=== PATIENT | male | born 1995 | race Caucasian/White ===

== ENCOUNTER 2016-11-10 22:33 | Inpatient (IN) | payer BC ==
[2016-11-10] MEDS ORDERED: Ketorolac INJ* 30 MG/ML 1 ML VIAL IV PUSH ONE (23:42)
[2016-11-10] MEDS ORDERED: Morphine INJ* 4 MG/ML 1 ML CARPUJECT IV ONE (23:43)
[2016-11-11] MEDS: NS 0.9% 1000 ML* 2,000 ML IV ONE ×2 (00:11→02:01)
[2016-11-11 00:13] LABS: Hematocrit 48 % (42-52); Hemoglobin 16.4 g/dl (14.0-18.0); Mean Corpuscular HGB Conc 34 g/dl (31-36); Mean Corpuscular Hemoglobin 30 pg (27-31); Mean Corpuscular Volume 87 fL (80-94); Mean Platelet Volume 9 um3 (7.4-10.4); Red Blood Count 5.53 10^6/ul (4.0-5.4); Red Cell Distribution Width 14 % (10.5-15); White Blood Count 23.8 10^3/ul (3.5-10.8)
[2016-11-11 00:14] LABS: Add Diff/Slide Review? Slide Review Added; Comments Flag Yes
[2016-11-11 00:15] LABS: ALT 14 U/L (7-52); AST 15 U/L (13-39); Albumin 4.7 g/dL (3.2-5.2); Alkaline Phosphatase 81 U/L (34-104); Anion Gap 11 mmol/L (2-11); BUN/Creatinine Ratio 21.1 (8-20); Blood Urea Nitrogen 16 mg/dL (6-24); CO2 Carbon Dioxide 28 mmol/L (22-32); Chloride 95 mmol/L (101-111); EGFR African American 166.5 (>60); EGFR Non-African American 129.5 (>60); Globulin 3.1 g/dL (2-4); Glucose 144 mg/dL (70-100); Lipase < 10 U/L (11.0-82.0); Potassium 3.6 mmol/L (3.5-5.0); Sodium 134 mmol/L (133-145); Total Protein 7.8 g/dL (6.4-8.9)
[2016-11-11] MEDS ORDERED: Ondansetron ODT TAB* 4 MG PO ONE (00:28)
--- NOTE | 2016-11-11 00:39 | ED ---
Abdominal Pain/Male - HPI Summary HPI Summary: 21M presents with RLQ pain for 2 days. He admits to nausea and vomiting. He states the pain started off intermittent and has gotten progressively worst. He states the pain radiates to right testicle. He denies any fevers. He has not eaten anything since Thursday. He denies any previous abdominal surgeries. He denies any dysuria. He denies any hemturia, penile discharge, frequency, urgency. He has never had this pain before. He states pain is 10/10. - History of Current Complaint Chief Complaint: EDAbdPain Stated Complaint: ABD PAIN Time Seen by Provider: 11/10/16 23:32 Pain Intensity: 7 - Allergies/Home Medications Allergies/Adverse Reactions: Allergies Allergy/AdvReac Type Severity Reaction Status Date / Time No Known Allergies Allergy Verified 11/10/16 22:58 PMH/Surg Hx/FS Hx/Imm Hx Endocrine/Hematology History: Denies: Hx Anticoagulant Therapy, Hx Diabetes Cardiovascular History: Denies: Hx Hypertension Infectious Disease History: No Infectious Disease History: Denies: Traveled Outside the [place] in Last 30 Days - Family History Known Family History: Negative: Diabetes - Social History Alcohol Use: Weekly Substance Use Type: Reports: Marijuana Smoking Status (MU): Never Smoked Tobacco Review of Systems Negative: Fever Negative: Chest Pain Negative: Shortness Of Breath Positive: Abdominal Pain, Vomiting, Nausea All Other Systems Reviewed And Are Negative: Yes Physical Exam Triage Information Reviewed: Yes Vital Signs On Initial Exam: Initial Vitals Temp Pulse Resp BP Pulse Ox 98.4 F 105 18 126/75 97 11/10/16 22:53 11/10/16 22:53 11/10/16 22:53 11/10/16 22:53 11/10/16 22:53 Vital Signs Reviewed: Yes Appearance: Positive: Pain Distress Skin: Positive: Warm, Dry Head/Face: Positive: Normal Head/Face Inspection Eyes: Positive: Normal, EOMI, OPAL, Conjunctiva Clear ENT: Positive: Normal ENT inspection, Pharynx normal, TMs normal Respiratory/Lung Sounds: Positive: Clear to Auscultation, Breath Sounds Present Cardiovascular: Positive: Normal, RRR Abdomen Description: Positive: Soft, Other: - tender in RLQ. pos obturator. no rebound Bowel Sounds: Positive: Present Psychiatric: Positive: Normal Diagnostics - Vital Signs Vital Signs Temp Pulse Resp BP Pulse Ox 10/03/17 00:10 20 11/10/16 23:34 79 97 11/10/16 22:53 98.4 F 105 18 126/75 97 - Laboratory Lab Results: Lab Results 11/10/16 11/10/16 Range/Units 23:40 23:40 WBC 23.8 H (3.5-10.8) 10^3/ul RBC 5.53 H (4.0-5.4) 10^6/ul Hgb 16.4 (14.0-18.0) g/dl Hct 48 (42-52) % MCV 87 (80-94) fL MCH 30 (27-31) pg MCHC 34 (31-36) g/dl RDW 14 (10.5-15) % Plt Count 268 (150-450) 10^3/ul MPV 9 (7.4-10.4) um3 Neut % (Auto) 94.1 H (38-83) % Lymph % (Auto) 2.5 L (25-47) % Centre % (Auto) 3.3 (1-9) % Eos % (Auto) 0 (0-6) % Baso % (Auto) 0.1 (0-2) % Absolute Neuts (auto) 22.4 H (1.5-7.7) 10^3/ul Absolute Lymphs (auto) 0.6 L (1.0-4.8) 10^3/ul Absolute Monos (auto) 0.8 (0-0.8) 10^3/ul Absolute Eos (auto) 0 (0-0.6) 10^3/ul Absolute Basos (auto) 0 (0-0.2) 10^3/ul Absolute Nucleated RBC 0 10^3/ul Nucleated RBC % 0 Sodium 134 (133-145) mmol/L Potassium 3.6 (3.5-5.0) mmol/L Chloride 95 L (101-111) mmol/L Carbon Dioxide 28 (22-32) mmol/L Anion Gap 11 (2-11) mmol/L BUN 16 (6-24) mg/dL Creatinine 0.76 (0.67-1.17) mg/dL Est GFR ( Amer) 166.5 (>60) Est GFR (Non-Af Amer) 129.5 (>60) BUN/Creatinine Ratio 21.1 H (8-20) Glucose 144 H (70-100) mg/dL Calcium 10.0 (8.6-10.3) mg/dL Total Bilirubin 0.70 (0.2-1.0) mg/dL AST 15 (13-39) U/L ALT 14 (7-52) U/L Alkaline Phosphatase 81 (34-104) U/L C-React Prot High Sens 67.27 mg/L Total Protein 7.8 (6.4-8.9) g/dL Albumin 4.7 (3.2-5.2) g/dL Globulin 3.1 (2-4) g/dL Albumin/Globulin Ratio 1.5 (1-3) Lipase < 10 L (11.0-82.0) U/L Result Diagrams: 11/10/16 23:40 11/10/16 23:40 Lab Statement: Any lab studies that have been ordered have been reviewed, and results considered in the medical decision making process. - CT abd CT Interpretation: Positive (See Comments) - fluid filled appendix 9mm appendicolith at junction with cecum and disconitnuuity in mid appedniceal wall with periappendical soft tissue inflammation. findings concistent with acute appendiciits probably complicated by perforation with with small free lfuid of developing abscess. no free air. CT Interpretation Completed By: Radiologist - Ultrasound No standard instances Ultrasound Interpretation: No Acute Changes Ultrasound Interpretation Completed By: Radiologist Abdominal Pain Fem Course/Dx - Course Course Of Treatment: 21M presents with RLQ pain for 2 days. He admits to nausea and vomiting. He states the pain started off intermittent and has gotten progressively worst. He states the pain radiates to right testicle. He denies any fevers. He has not eaten anything since Thursday. He denies any previous abdominal surgeries. He denies any dysuria. He denies any hemturia, penile discharge, frequency, urgency. He has never had this pain before. He states pain is 10/10. labs wbc 23 with left shift. testicular u/s normal. Ct shows acute appendicitis. dr moncada aware and will have admitted. - Diagnoses Differential Diagnosis/HQI/PQRI: Appendicitis, Testicular Torsion, Urinary Tract Infection Provider Diagnoses: Appendicitis - Provider Notifications Discussed Care Of Patient With: dr coral Time Discussed With Above Provider: 03:25 - will admit Discharge - Discharge Plan Condition: Guarded Disposition: ADMITTED TO [facility] Referrals: Norman Hidalgo MD [Primary Care Provider] -
[2016-11-11] MEDS ORDERED: Ondansetron INJ* 2 MG/ML VIAL IV ONE ×2 (00:45→03:24)
[2016-11-11] MEDS ORDERED: HYDROmorphone INJ* 1 MG/ML CARPUJECT SYRINGE IV SLOW PU ONE ×2 (00:45→03:24)
[2016-11-11] MEDS ORDERED: Iohexol 300* (CONTRAST) 10 ML SDV IV ONE (01:30)
[2016-11-11 02:05] LABS: Urine Bilirubin Negative (Negative); Urine Glucose Negative (Negative); Urine Nitrite Negative (Negative)
[2016-11-11] MEDS ORDERED: HYDROmorphone INJ* 1 MG/ML CARPUJECT SYRINGE IV SLOW PU PRN (03:21)
[2016-11-11] MEDS: NS 0.9% 1000 ML* 1,000 ML IV SCH ×2 (04:26→17:07)
[2016-11-11] MEDS ORDERED: Famotidine IV* 10 MG/ML 2 ML (20 mg) ONE (07:16)
[2016-11-11] MEDS ORDERED: Bupivacaine 0.25% SDV* 30 ML ONE ×2 (07:38→10:37)
[2016-11-11] MEDS ORDERED: ceFAZolin 2 GM PREMIX (*) 50 ML IVPB ONE (07:47)
--- NOTE | 2016-11-11 07:59 | RAD ---
HISTORY: Right testicular pain COMPARISONS: None TECHNIQUE: Multiple transverse and longitudinal ultrasound images were obtained of the scrotum, using grayscale, color Doppler, and spectral Doppler imaging. FINDINGS: RIGHT: RIGHT TESTICLE: The right testicle measures 4.2 x 1.7 x 3.3 cm. The right testicle is homogeneous in echotexture, without testicular parenchymal mass. Normal arterial and venous waveforms are identified within the right testicle on spectral Doppler imaging. RIGHT EPIDIDYMIS: The right epididymis measures 1 cm at the head. RIGHT SCROTUM: There is no hydrocele or varicocele. LEFT: LEFT TESTICLE: The left testicle measures 4.3 x 1.9 x 3 cm. The left testicle is homogeneous in echotexture, without testicular parenchymal mass. Normal arterial and venous waveforms are identified within the left testicle on spectral Doppler imaging. LEFT EPIDIDYMIS: The left epididymis measures 1.2 cm at the head. LEFT SCROTUM: There is no hydrocele or varicocele. OTHER: None IMPRESSION: 1. NO TESTICULAR PARENCHYMAL MASS. 2. NO SONOGRAPHIC FEATURES OF TORSION. PLEASE NOTE THAT PARTIAL OR INTERMITTENT TORSION MAY BE SONOGRAPHICALLY NORMAL.
--- NOTE | 2016-11-11 08:16 | RAD ---
CLINICAL HISTORY: Right lower quadrant pain COMPARISON: None TECHNIQUE: Multiple contiguous axial CT scans were obtained of the abdomen and pelvis after the administration of intravenous contrast. Coronal and sagittal multiplanar reformations are submitted for review. Oral contrast was administered. Delayed images were obtained through the abdomen and pelvis. FINDINGS: LUNG BASES: The lung bases are clear. LIVER: The liver is normal in shape, size, contour, and attenuation. BILE DUCTS: There is no intrahepatic or extrahepatic biliary dilatation. GALLBLADDER: The gallbladder is normal, without pericholecystic inflammatory change. PANCREAS: The pancreas is normal, without mass or ductal dilatation. SPLEEN: Normal in size and appearance. UPPER GI TRACT: Evaluation of the gastrointestinal tract is limited by incomplete gastric distention. The upper GI tract is unremarkable. SMALL BOWEL AND MESENTERY: The small bowel is normal in contour, course, and caliber. There is no obstruction or dilatation. COLON: The colon is normal in contour, course, caliber. There is no pericolonic inflammatory change. There is tubular, vermiform, hollow viscus that is blind ending originates from the cecum, consistent with the appendix. This is dilated with periappendiceal inflammatory change. An appendicolith is noted. There is no loculated fluid collection to suggest abscess. There is discontinuity of the mucosal enhancement best seen on coronal image 35. ADRENALS: Normal bilaterally. KIDNEYS: The kidneys are normal in shape, size, contour, and axis. There is no hydronephrosis or nephrolithiasis. BLADDER: The bladder is smooth in contour. PELVIC ORGANS: The prostate gland is normal. The seminal vesicles are symmetric. AORTA: The aorta is normal. IVC: Unremarkable LYMPH NODES: There is no lymphadenopathy by size criteria. ABDOMINAL WALL: There is no evidence for abdominal wall hernia. BONES AND SOFT TISSUES: The bones and soft tissues are unremarkable. OTHER: There is a small amount of pelvic ascites IMPRESSION: 1. ACUTE APPENDICITIS. 2. THERE IS DISCONTINUITY OF THE APPENDICEAL MUCOSA WHICH MAY INDICATE PERFORATION. 3. THERE IS NO FREE AIR. THERE IS A MODERATE AMOUNT OF SIMPLE FLUID WITHIN THE PELVIS. 4. THERE IS NO LOCULATED FLUID COLLECTION TO SUGGEST ABSCESS. FINDINGS WERE COMMUNICATED TO THE ORDERING CLINICIAN BY DR. CLARK AT APPROXIMATELY 3:37 AM ON NOVEMBER 11, 2016.
[2016-11-11] MEDS ORDERED: Atracurium* 10 MG/ML 10 ML VIAL ONE (08:34)
[2016-11-11] MEDS ORDERED: fentaNYL* 50 MCG/ML 2 ML VIAL (100 MCG VIAL) ONE (08:34)
[2016-11-11] MEDS ORDERED: Midazolam* 1 MG/ML 5 ML VIAL (5 MG) ONE (08:34)
[2016-11-11] MEDS ORDERED: KETAMINE HCL* 50 MG/ML 10 ML VIAL ONE (08:34)
[2016-11-11] MEDS ORDERED: Morphine INJ* 2 MG/ML 1 ML CARPUJECT IV PRN (09:21)
[2016-11-11] MEDS ORDERED: PROCHLORPERAZINE INJ 5 MG/ML 2 ML VIAL IV PRN (09:21)
[2016-11-11] MEDS ORDERED: oxyCODONE/Acetamin 5/325 MG* TAB PO PRN ×2 (09:21→10:51)
[2016-11-11] MEDS ORDERED: fentaNYL* 50 MCG/ML 2 ML VIAL (100 MCG VIAL) IV PRN (09:21)
[2016-11-11] MEDS ORDERED: Ketorolac INJ* 30 MG/ML 1 ML VIAL ONE (10:04)
[2016-11-11] MEDS ORDERED: Propofol* 10 MG/ML 20 ML BTL IV PUSH ONE (10:04)
[2016-11-11] MEDS ORDERED: Dexamethasone IV* 4 MG/ML 1 ML (4 MG) ONE (10:04)
[2016-11-11] MEDS ORDERED: Lidocaine 2% PF * 5 ML VIAL ONE (10:04)
[2016-11-11] MEDS ORDERED: PROCHLORPERAZINE INJ 5 MG/ML 2 ML VIAL ONE (10:04)
[2016-11-11] MEDS ORDERED: Ondansetron INJ* 2 MG/ML VIAL ONE (10:04)
[2016-11-11] MEDS ORDERED: Neostigmine Methylsulfate* 2 MG/2 ML SYRINGE ONE ×2 (10:04→10:06)
[2016-11-11] MEDS ORDERED: Glycopyrrolate IV* 0.2 MG/ML 1 ML VIAL ONE ×2 (10:04→10:05)
[2016-11-11] MEDS ORDERED: Morphine INJ* 10 MG/ML 1 ML CARPUJECT ONE (10:05)
--- NOTE | 2016-11-11 10:20 | HP ---
HISTORY AND PHYSICAL: DATE OF ADMISSION: 11/11/16 CHIEF COMPLAINT: Right lower quadrant abdominal pain. HISTORY OF PRESENT ILLNESS: Mr. Joe Washington is a healthy 21-year-old male who on Thursday afternoon developed a generalized abdominal discomfort associated with some nausea. He had no vomiting or diarrhea. Became anorexic overnight and Thursday he developed some pain that seemed to be more prominent on the right side and worsened in severity over the course of the day. He had no fevers, shakes, or chills or urinary complaints. Once again no diarrhea. He presented to the emergency room later last night, noted to have tenderness in the right groin. He also at that point had complained of some pain that radiated down into his right testicle. There were no lumps, bulges, or scrotal swelling noted. Laboratory workup included a white blood cell count of 22,800 with slight shift. Electrolytes, BUN and creatinine were within normal limits. He had a lipase of less than 10. He underwent a testicular ultrasound, the right showed no evidence of torsion or other spermatic cord abnormalities. He subsequently underwent a CT scan of the abdominal and pelvis with oral and IV contrast. This shows a finding consistent with acute appendicitis, most likely a retrocecal appendix with appendicolith. No obvious abscess but there is periappendiceal inflammation and the [place] read makes mention of a possible perforation but no extraluminal air or abscess noted. The patient was admitted to the surgical service with plan for appendectomy this morning. PAST MEDICAL HISTORY: Unremarkable. PAST SURGICAL HISTORY: None. MEDICATIONS: None. ALLERGIES: He has no known drug allergies. SOCIAL HISTORY: He is presently working part-time. He smokes about half a pack of cigarettes per day. He drinks alcohol on a social basis. He has been taking college classes. REVIEW OF SYSTEMS: Cerebrovascular: No dizziness or visual disturbance. Cardiovascular: No chest pain, shortness of breath. Pulmonary: No wheezing or hemoptysis. GI: As per above. No chronic abdominal pain. No weight loss. No diarrhea, blood per rectum or melena. PHYSICAL EXAMINATION GENERAL: He is a slender male with normal attention, grooming, awake, alert and conversive. He is walking from the bathroom to the bed without difficulty. VITAL SIGNS: Temperature 98, pulse 75, respirations 16, blood pressure 125/66. LUNGS: Clear to auscultation with normal respiratory effort. HEART: Regular rate and rhythm without murmurs, rubs, or gallops. ABDOMEN: Somewhat firm but nondistended. He had diminished bowel sounds throughout. There are no hernias or prior surgical incisions. He has tenderness in the right lower quadrant on palpation without localized peritoneal irritation, rigidity or mass. PSYCHIATRIC: He is awake, alert, and oriented x3. He has normal judgment and insight. DIAGNOSTIC STUDIES/LAB DATA: I did review the images of the CAT scan done overnight. IMPRESSION: Acute appendicitis. PLAN: I recommend laparoscopic appendectomy this morning. Procedure was discussed with the patient and the risks but not limited to bleeding, infection , intra- abdominal abscess formation, possibility of an open procedure, injury to peritoneal and retroperitoneal structures, possibility of other surgical indicated procedures may need to be performed were all explained. Possibility of drain placed was discussed as well as the risks of general anesthesia, the hospital stay and recovery times were discussed. I also discussed this care with his father on the telephone. We in addition also discussed nonoperative management of acute appendicitis with IV antibiotics but I did not recommend this and he is aware of this but still would like to proceed with the surgery. [id number]/[facility] #: [id number] FERNANDO
[2016-11-11] MEDS ORDERED: Bupivacaine 0.5% SDV PF* 30 ML VIAL ONE (10:36)
--- NOTE | 2016-11-11 10:49 | SURGPN ---
Brief Operative Note - Surgery Procedures: Procedures CIRCUMCISION (95) OPERATIVE REPORT PRE-OP: Acute appendicitis POST-OP: Perforated retrocecal appendicitis PROCEDURE: Laparoscopic appendectomy SURGEON: MD Jamal ANESTHESIA: General with local with [place] ASST: none IVF: 1 liter of crystalloid EBL: min SPECIMEN: Appendix DRAIN: #10 WILLY drain WOUND CLASS: 4 COMPLICATIONS: none TO PACU
[2016-11-11] MEDS: Ondansetron INJ* 2 MG/ML VIAL IV PRN (12:44)
[2016-11-11] MEDS: Heparin VIAL(*) 5000 UNITS/ML VIAL (FIVE THOUSAND) SUBCUT SCH ×2 (14:20→21:24)
[2016-11-11] MEDS: Ketorolac INJ* 30 MG/ML 1 ML VIAL IV PUSH PRN ×2 (15:31→21:31)
[2016-11-11] MEDS: oxyCODONE/Acetamin 5/325 MG* TAB PO PRN ×2 (18:23→22:21)
[2016-11-12] MEDS: NS 0.9% 1000 ML* 1,000 ML IV SCH ×2 (00:55→09:11)
[2016-11-12] MEDS: Heparin VIAL(*) 5000 UNITS/ML VIAL (FIVE THOUSAND) SUBCUT SCH ×3 (05:02→22:14)
[2016-11-12] MEDS: Ketorolac INJ* 30 MG/ML 1 ML VIAL IV PUSH PRN ×2 (05:05→15:17)
[2016-11-12 05:38] LABS: Hematocrit 40 % (42-52); Hemoglobin 13.5 g/dl (14.0-18.0); Mean Corpuscular HGB Conc 34 g/dl (31-36); Mean Corpuscular Hemoglobin 30 pg (27-31); Mean Corpuscular Volume 88 fL (80-94); Mean Platelet Volume 9 um3 (7.4-10.4); Red Blood Count 4.54 10^6/ul (4.0-5.4); Red Cell Distribution Width 14 % (10.5-15); White Blood Count 22.9 10^3/ul (3.5-10.8)
[2016-11-12 05:48] LABS: Comments Flag Yes
[2016-11-12 05:59] LABS: BUN/Creatinine Ratio 16.9 (8-20); Calcium 8.9 mg/dL (8.6-10.3); EGFR African American 199.4 (>60); EGFR Non-African American 155.1 (>60); Potassium 3.9 mmol/L (3.5-5.0)
[2016-11-12] MEDS: Ondansetron INJ* 2 MG/ML VIAL IV PRN ×3 (09:10→21:22)
[2016-11-12] MEDS ORDERED: PROCHLORPERAZINE INJ 5 MG/ML 2 ML VIAL IV PRN (10:31)
[2016-11-12] MEDS ORDERED: PROCHLORPERAZINE INJ 5 MG/ML 2 ML VIAL ONE (10:34)
--- NOTE | 2016-11-12 10:46 | PN ---
Progress Note - Progress Note Date of Service: 11/12/16 SOAP: Subjective: Nausea this morning, not passing flatus Pain is adequately controlled Ambulating without difficulty Objective: Temp Pulse Resp BP Pulse Ox 98.1 F 57 16 112/67 98 11/12/16 07:33 11/12/16 07:33 11/12/16 07:33 11/12/16 07:33 11/12/16 07:33 Intake & Output 11/10/16 11/11/16 11/12/16 11/13/16 06:59 06:59 06:59 06:59 Intake Total 3000 5467 Output Total 400 2230 15 Balance 2600 3237 -15 Weight 130 lb Intake: IV Fluids 3000 3706 LR 1600 IVPB 1091 NS (0.9%) 984 zosyn 107 Oral 0 670 Output: WILLY #1 180 15 Urine 400 2050 Other: Estimated Void Medium # Bowel Movements 0 PEX: Comfortable Lungs are clear Abd is soft and non-distended. Bowel sounds are present. Incisions are clean and dry. WILLY in place with some yellow turbid fluid in bulb. Appropriate incisional tenderness. Laboratory Results - last 24 hr 11/11/16 11/12/16 11/12/16 12:50 04:46 04:46 WBC 22.9 H RBC 4.54 Hgb 13.5 L Hct 40 L MCV 88 MCH 30 MCHC 34 RDW 14 Plt Count 177 MPV 9 Neut % (Auto) 93.5 H Lymph % (Auto) 3.4 L [place] % (Auto) 3.0 Eos % (Auto) 0 Baso % (Auto) 0.1 Absolute Neuts (auto) 21.4 H Absolute Lymphs (auto) 0.8 L Absolute Monos (auto) 0.7 Absolute Eos (auto) 0 Absolute Basos (auto) 0 Absolute Nucleated RBC 0.01 Nucleated RBC % 0 APTT 20.2 L Sodium 137 Potassium 3.9 Chloride 104 Carbon Dioxide 28 Anion Gap 5 BUN 11 Creatinine 0.65 L Est GFR ( Amer) 199.4 Est GFR (Non-Af Amer) 155.1 BUN/Creatinine Ratio 16.9 Glucose 91 Calcium 8.9 Assessment: POD# 1 s/p lap appy for perforated retrocecal appendicitis Leukocytosis Plan: Continue IV antibiotics Advace diet as tolerated-some nausea this morning, still with ileus IV fluids Increase activity Sub q heparin and pulmonary toilet REcheck WBC in AM
[2016-11-13] MEDS: NS 0.9% 1000 ML* 1,000 ML IV SCH ×3 (01:01→17:03)
[2016-11-13] MEDS: Ondansetron INJ* 2 MG/ML VIAL IV PRN (04:12)
[2016-11-13] MEDS: Heparin VIAL(*) 5000 UNITS/ML VIAL (FIVE THOUSAND) SUBCUT SCH ×3 (06:03→23:10)
[2016-11-13 06:30] LABS: Hematocrit 40 % (42-52); Hemoglobin 13.6 g/dl (14.0-18.0); Mean Corpuscular HGB Conc 34 g/dl (31-36); Mean Corpuscular Hemoglobin 29 pg (27-31); Mean Corpuscular Volume 87 fL (80-94); Mean Platelet Volume 9 um3 (7.4-10.4); Red Blood Count 4.64 10^6/ul (4.0-5.4); Red Cell Distribution Width 14 % (10.5-15); White Blood Count 19.2 10^3/ul (3.5-10.8)
[2016-11-13 06:41] LABS: Add Diff/Slide Review? Slide Review Added
--- NOTE | 2016-11-13 09:42 | PN ---
Progress Note - Progress Note Date of Service: 11/13/16 SOAP: Subjective: Feels a little better this morning Nausea much improved Pain is adequately controlled Having multiple loose BM's overnight Objective: Temp Pulse Resp BP Pulse Ox 98.4 F 52 16 140/79 100 11/13/16 03:28 11/13/16 03:28 11/13/16 03:28 11/13/16 03:28 11/13/16 03:28 Intake & Output 11/11/16 11/12/16 11/13/16 11/14/16 06:59 06:59 06:59 06:59 Intake Total 3000 5467 8166 Output Total 400 2230 297 Balance 2600 3237 7869 Weight 130 lb Intake: IV Fluids 3000 3706 3902 LR 1600 NS (0.9%) 903 IVPB 1091 3364 NS (0.9%) 984 2930 zosyn 107 324 Oral 0 670 900 Output: WILLY #1 180 47 Urine 400 2050 250 Other: Estimated Void Medium Medium # Bowel Movements 0 Estimated Stool Amount Medium # Voids 4 PEX: Comfortable Lungs are clear Abd is soft and non-distended. Bowel sounds are present Incisions are clean and dry WILLY in place with serous fluid in bulb Laboratory Results - last 24 hr 11/13/16 06:10 WBC 19.2 H RBC 4.64 Hgb 13.6 L Hct 40 L MCV 87 MCH 29 MCHC 34 RDW 14 Plt Count 198 MPV 9 Neut % (Auto) 90.6 H Lymph % (Auto) 4.3 L [place] % (Auto) 4.9 Eos % (Auto) 0.1 Baso % (Auto) 0.1 Absolute Neuts (auto) 17.4 H Absolute Lymphs (auto) 0.8 L Absolute Monos (auto) 0.9 H Absolute Eos (auto) 0 Absolute Basos (auto) 0 Absolute Nucleated RBC 0 Nucleated RBC % 0 Assessment: POD #2 s/p lap appy for perforated retrocecal appendicitis Nausea-improved WBC trending down Plan: Advance diet IV abx Continue WILLY drain Increase activity Recheck WBC tomorrow Hopeful d/c tomorrow on oral antibiotics.
[2016-11-13] MEDS: HYDROmorphone INJ* 2 MG/ML CARPUJECT SYRINGE IV SLOW PU PRN ×3 (14:28→23:10)
--- NOTE | 2016-11-13 15:36 | OP ---
DATE OF OPERATION: 11/11/16 - ROOM #333 DATE OF : 89 SURGEON: Edgardo Berry MD PARASITOLOGIST: None. ANESTHESIOLOGIST: Ramy Del Real MD ANESTHESIA: General with local. PRE-OP DIAGNOSIS: Acute appendicitis. POST-OP DIAGNOSIS: Acute perforated retrocecal appendicitis. OPERATIVE PROCEDURE: Laparoscopic appendectomy. INDICATIONS: Mr. Joe Washington is a 21-year-old gentleman presenting to the emergency room with almost 24 hours of abdominal pain worsening in the right lower quadrant. He was noted to have a white blood cell count of almost 24, 000. A CT scan showed findings consistent with appendicitis, concern for possible perforation, but no evidence of abscess or extraluminal air. He was seen in surgical consultation and now is being taken to the operating room for an appendectomy. Procedure, risks, benefits, and alternatives were explained to the patient and outlined in the preoperatively transcribed history and physical. ESTIMATED BLOOD LOSS: Minimal. SPECIMEN: Appendix. DRAIN: #10 WILLY drain. WOUND CLASSIFICATION: IV. COMPLICATIONS: None. DESCRIPTION OF PROCEDURE: Written informed consent was obtained, preoperative antibiotics were administered and the abdomen was marked with indelible ink. The patient was taken to the operating room and placed in the supine position. Sequential compression devices and warming blanket were applied. General anesthesia was administered. The abdomen was prepped and draped in the usual sterile fashion. Time-out verification was completed. Initially, a small transverse incision was made just above the umbilicus at the midline. The peritoneal cavity was entered under direct vision. The abdomen was insufflated to 15 mmHg and a 5-mm scope was inserted. It was obvious that there was a significant amount of purulent fluid throughout all 4 quadrants of the abdomen, however, mainly in the pelvis consistent with purulent peritonitis. A 5-mm port was placed in the left lower abdominal wall and a second 5-mm port was placed in the suprapubic position. The pus was mainly in the pelvis in the right lower quadrant. With care, I was able to identify the terminal ileum and follow this over to the cecum. The cecum was somewhat adherent to the anterior and lateral abdominal wall. This was taken down bluntly. It appeared that the terminal ileum was normal as well as the cecum. The gallbladder looked unremarkable. Liver was normal. There appeared to be no evidence of bilious drainage in the upper abdomen. With care, I was able to reflect the floppy cecum superiorly and somewhat medially, I identified the tip of an appendix in the retroperitoneum. I did mobilize the lateral peritoneal attachments of the cecum to further expose this , as I was able to mobilize this medially, identified the appendix, which was quite adherent to the retroperitoneum and retro-cecal and in the mid portion it was gangrenous with an obvious area of perforation and a small amount of pus in this area. With care, I was able to mobilize the cecum up and identified the appendix and grasped this and slowly mobilizing it up and dividing the mesoappendix sequentially with LigaSure device. The diseased appendix appeared to be in the mid to distal portion fortunately and was grasping this and continued mobilization of the cecum off the retroperitoneum and the lateral attachments, I was able to follow the appendix up into its more proximal portion , which was normal caliber and appeared to be healthy and with some continued dissection followed this to the base of the cecum, which also was healthy. There was no appendicolith spilled and a small amount of purulence was drained and irrigated. The base of the appendix was then divided with an Endo AUGIE mathis load of a 45-mm stapler and the appendix was placed in an EndoCatch bag and brought out through the umbilical incision. The staple line was intact without bleeding. Once this was completed, I thoroughly irrigated the entire abdominal cavity and pelvis with almost 5 L of saline until clear. Next, I placed a #10 WILLY drain down into the pelvis and brought this out through a separate stab wound in the right lower quadrant of the abdominal wall. The drain was sutured to the skin with 3-0 Prolene suture. All ports were then removed under direct vision of the camera. There was no abdominal wall bleeding. The umbilical fascia was closed with interrupted 0 Polysorb suture. The skin at all 3 incisions was approximated with subcuticular 4-0 Polysorb suture and Steri-Strips were applied. The patient tolerated the procedure well and was taken to the recovery room in stable condition. [id number]/[facility] #: [id number] FERNANDO
[2016-11-14] MEDS: NS 0.9% 1000 ML* 1,000 ML IV SCH (01:29)
[2016-11-14] MEDS: Heparin VIAL(*) 5000 UNITS/ML VIAL (FIVE THOUSAND) SUBCUT SCH (05:38)
[2016-11-14 06:44] LABS: Hematocrit 38 % (42-52); Hemoglobin 12.9 g/dl (14.0-18.0); Mean Corpuscular HGB Conc 34 g/dl (31-36); Mean Corpuscular Hemoglobin 30 pg (27-31); Mean Corpuscular Volume 86 fL (80-94); Mean Platelet Volume 9 um3 (7.4-10.4); Red Blood Count 4.34 10^6/ul (4.0-5.4); Red Cell Distribution Width 13 % (10.5-15); White Blood Count 13.1 10^3/ul (3.5-10.8)
[2016-11-14 06:47] LABS: Add Diff/Slide Review? Slide Review Added; Comments Flag Yes
--- NOTE | 2016-11-14 11:33 | PN ---
Progress Note - Progress Note Date of Service: 11/14/16 Note: Surgery Progress: S: doing well; min pain; jay diet well; moving bowels O: Vital Signs - 8 hr 11/14/16 11/14/16 07:27 08:00 Temperature 98.8 F Pulse Rate 61 Respiratory 18 16 Rate Blood Pressure 134/77 (mmHg) O2 Sat by Pulse 100 Oximetry Intake and Output Last 24 Hours 11/12/16 11/13/16 11/14/16 11/15/16 06:59 06:59 06:59 06:59 Intake Total 5467 8166 4775 Output Total 2230 297 2445 Balance 3237 7869 2330 Intake: IV Fluids 3706 3902 2195 LR 1600 NS (0.9%) 903 1681 zosyn 168 IVPB 1091 3364 NS (0.9%) 984 2930 zosyn 107 324 Oral 047 027 4489 Output: WILLY #1 180 47 20 Urine 2050 250 2425 Other: Estimated Void Medium Medium # Bowel Movements 0 1 Estimated Stool Amount Medium Small # Voids 4 Laboratory Results - last 24 hr 11/14/16 06:28 WBC 13.1 H RBC 4.34 Hgb 12.9 L Hct 38 L MCV 86 MCH 30 MCHC 34 RDW 13 Plt Count 204 MPV 9 Neut % (Auto) 80.7 Lymph % (Auto) 8.7 L [place] % (Auto) 8.3 Eos % (Auto) 1.0 Baso % (Auto) 1.3 Absolute Neuts (auto) 10.5 H Absolute Lymphs (auto) 1.1 Absolute Monos (auto) 1.1 H Absolute Eos (auto) 0.1 Absolute Basos (auto) 0.2 Absolute Nucleated RBC 0 Nucleated RBC % 0 Abd: lap sites clean under steris; WILLY w/ min clear serous drainage; WILLY d/c'd w/ o incident; A: s/p lap appy (rupt'd), doing well P: home today; Augmentin x 10d; office f/u 1 wk; instructions reviewed
[2016-11-14 11:51] VITALS: BP 131/66
--- NOTE | 2016-11-14 22:57 | DS ---
CC: Norman Hidalgo MD * DISCHARGE SUMMARY: DATE OF ADMISSION: 11/10/16 DATE OF DISCHARGE: 11/14/16 ATTENDING PHYSICIAN: Dr. Berry * (DICTATED BY ALECIA RUIZ) HOSPITAL COURSE: Please refer to admission history and physical for admission details. The patient was taken to the operating room on the morning of and underwent laparoscopic appendectomy for acute ruptured appendicitis with Dr. Berry. Over the next 3 days, his white count gradually improved while receiving IV Zosyn. His pain also improved and he was able to advance in diet. As of the morning of discharge, he was afebrile, his white count was down to 13.1, Yunier-Yusuf drain was removed, abdomen was otherwise soft and nontender with laparoscopic incision sites healing well without evidence of infection. IMPRESSION: Status post laparoscopic appendectomy for acute ruptured appendicitis. PLAN: Home on 10 days of Augmentin 875 mg b.i.d. Prescription also was sent electronically for Percocet 5/325 to his pharmacy ([facility] checked). The patient is to follow up in our office on 11/21/16. Instructions were reviewed. ALECIA RUIZ [id number] #: [id number] MTDD
== END 2016-11-14 12:42 | disposition home or self-care (01) | DRG 225 ==
LOC: ED 22:33 → SSU 11-11 03:21 → OBSVTOIN 11-12 09:00
PROVIDERS: ADMIT Surgery; ATTEND Surgery
PROC: 0DTJ4ZZ Resection of Appendix, Percutaneous Endoscopic Approach (ICD-10-PCS; principal; 2016-11-11 07:15)
DX: K35.3 Acute appendicitis with localized peritonitis (principal); F17.210 Nicotine dependence, cigarettes, uncomplicated
CPT/HCPCS: 36415; 74177; 76870; 80048; 80053; 81003; 83690; 85025; 85730; 86141; 88304; 94760; 99406; A9270-GY; C1776; G0378; J0690; J0780; J1100; J1170; J1644; J1885; J2250; J2270; J2405; J2543; J2704; J3010; Q9967